=== PATIENT | male | born 1960 | race Caucasian/White ===

== ENCOUNTER → 2018-07-26 | Day surgery (SDC) | payer OTHER ==
[~2018-07-26] MED LIST: BACLOFEN10 MG PO; BACTRIM DS TAB1 EACH PO; CARDURA XL4 MG PO; CLONAZEPAM0.5 MG PO; DIOVAN HCT 3201 EAC1 PO; NABUMETONE750 MG PO; OXYC1TAB9 PO; RESTORIL30 MG PO
== END | disposition home or self-care (01) ==
LOC: ADM 07-19 08:15 → CIR.AMB 05:41 → EDSTATUS 08:15 → CIR.AMB 08:15
DX: M75.02 Adhesive capsulitis of left shoulder (principal)

== ENCOUNTER 2019-07-18 07:39 | Day surgery (SDC) | payer OTHER | END 2019-07-18 13:00 | disposition home or self-care (01) | LOC: AMB-ENDOS 07:39 → CIR.AMB 14:45 → AMB-ENDOS 14:45 | DX: K57.30 Diverticulosis of large intestine without perforation or abscess without bleeding (principal) ==